=== PATIENT | female | born 1965 | race Caucasian/White ===

== ENCOUNTER → 2020-10-26 | Outpatient (CLI) | payer OTHER | LOC: LAB 10:57 | PROVIDERS: ATTEND Internal Medicine Cardiovascular Disease | DX: R50.9 Fever, unspecified (principal) | CPT/HCPCS: U0003 ==

== ENCOUNTER → 2021-07-30 | Outpatient (CLI) | payer OTHER ==
[2021-07-30 10:17] LABS: BASO # 0.1 x10^3/uL (0.0-0.2); BASO % 1 % (0-3); EOS # 0.2 x10^3/uL (0.0-0.7); EOS % 3 % (0-3); HEMATOCRIT 41.9 % (36.0-47.0); HEMOGLOBIN 14.3 g/dL (12.0-15.5); LYMPH # 1.4 x10^3/uL (1.0-4.8); LYMPH % 22 % (24-48); MEAN CORPUSCULAR HEMOGLOBIN 32 pg (25-35); MEAN CORPUSCULAR HGB CONC 34 g/dL (31-37); MEAN CORPUSCULAR VOLUME 94 fL (79-100); MONO # 0.4 x10^3/uL (0.0-1.1); MONO % 6 % (0-9); NEUT # 4.4 x10^3uL (1.8-7.7); NEUT % 68 % (31-73); PLATELET COUNT 238 x10^3/uL (140-400); RED BLOOD COUNT 4.46 x10^6/uL (3.50-5.40); RED CELL DISTRIBUTION WIDTH 12.4 % (11.5-14.5); WHITE BLOOD COUNT 6.5 x10^3/uL (4.0-11.0)
[2021-07-30 10:27] LABS: CREATININE 0.9 mg/dL (0.6-1.0); GFR 64.5; POTASSIUM 4.3 mmol/L (3.5-5.1)
--- NOTE | 2021-07-31 09:23 | EKG ---
[address] [address] Test Date: 2021-07-30 Test Time: 09:27:54 Pat Name: FIOR WILKERSON Department: Room: Gender: F Hopper Feeder: : 1965 Requested By: STAFF NON Order Number: [id number] Reading MD: Measurements Intervals [place] Rate: 63 P: 54 CO: 176 QRS: 66 QRSD: 84 T: 48 QT: 382 QTc: 394 Interpretive Statements SINUS RHYTHM OTHERWISE NORMAL ECG RI6.02 No previous ECG available for comparison
== END ==
LOC: LAB 09:10
PROVIDERS: ATTEND Ophthalmology
DX: Z01.818 Encounter for other preprocedural examination (principal)
CPT/HCPCS: 36415; 80048; 85025